=== PATIENT | male | born 1940 | race Asian ===

== ENCOUNTER 2022-05-31 08:25 | Emergency (ER) | payer OTHER, MEDICARE ==
[2022-05-31 08:36] VITALS: BMI 28.0
[2022-05-31 10:55] LABS: PH,URINE 6.5 (5.0-8.0); URINE APPEARANCE CLEAR; URINE BILIRUBIN NEGATIVE (NEGATIVE); URINE COLOR YELLOW; URINE GLUCOSE (UA) NEGATIVE (NEGATIVE); URINE KETONE NEGATIVE (NEGATIVE); URINE LEUK ESTERASE NEGATIVE (NEGATIVE); URINE NITRITE NEGATIVE (NEGATIVE); URINE PROTEIN NEGATIVE (NEGATIVE); URINE UROBILINOGEN 0.2 mg/dL (0.2-1.0)
[2022-05-31 11:31] LABS: BASO % 0.5 % (0-2.0); HEMATOCRIT 38.5 % (35.4-49); HEMOGLOBIN 12.5 GM/dL (11.7-16.9); LYMPH % 12.2 % (8-40); MCH 24.8 pg (25.7-33.7); MCHC 32.5 g/dl (32.0-35.9); MEAN CELL VOLUME 76.5 fl (80-96); MONO % 7.2 % (3.8-10.2); NEUT % 80.1 % (42.8-82.8); PLATELET COUNT 359 10^3/uL (134-434); RBC 5.03 M/mm3 (4.00-5.60); RDW 13.8 % (11.9-15.9); WHITE BLOOD COUNT 13.7 K/mm3 (4.0-10.0)
[2022-05-31 12:08] LABS: ALBUMIN 2.8 g/dl (3.4-5.0); BLOOD UREA NITROGEN 14.8 mg/dL (7-18); CALCIUM 9.1 mg/dL (8.5-10.1); MAGNESIUM 2.3 mg/dL (1.8-2.4)
[2022-05-31 12:11] LABS: CREATININE 0.7 mg/dL (0.55-1.3)
[2022-05-31 12:13] LABS: BILIRUBIN,TOTAL 0.3 mg/dL (0.2-1)
[2022-05-31] MEDS ORDERED: CEFTRIAXONE 1,000 MG in DEXTROSE 5%-WATER - 50 ML IVPB ONE (12:37)
[2022-05-31] MEDS ORDERED: SODIUM CHLORIDE 500 ML IV STA (12:38)
[2022-05-31] MEDS ORDERED: CEFTRIAXONE 1 GM/50 ML BAG ONE (12:42)
[2022-05-31 13:21] VITALS: BP 116/70; PULSE 70; RESP 16; TEMP 98.3
== END 2022-05-31 13:30 | disposition home or self-care (01) ==
LOC: JER 08:25
PROC: 3E033GC Introduction of Other Therapeutic Substance into Peripheral Vein, Percutaneous Approach (ICD-10-PCS; principal; 2022-05-31)
DX: R33.9 Retention of urine, unspecified (principal)
CPT/HCPCS: 36415; 80053; 81003; 83735; 85025; 87086; 99284-25